=== PATIENT | female | born 1980 ===

== ENCOUNTER 2021-04-08 09:45 | Inpatient (IN) | payer OTHER ==
[~2021-04-08] VITALS: Ht 160 cm; Wt 10.0 kg
[2021-04-08] MEDS ORDERED: ALBUTEROL IH (15:18)
[2021-04-11] MEDS ORDERED: COLACE100 MG PO (07:37)
[2021-04-11] MEDS ORDERED: DIAZEPAM5 MG PO (07:37)
[2021-04-11] MEDS ORDERED: MEDROLPACK PO (07:37)
[2021-04-11] MEDS ORDERED: ACETAMINOPHEN-1 EAC2 PO (07:37)
== END 2021-04-12 13:23 | disposition home or self-care (01) | DRG 473 ==
LOC: SURG 04-11 05:45 → O/R 04-11 05:45 → SURH 04-11 07:00 → SURG 04-11 10:55 → PED 04-11 14:33
PROVIDERS: ADMIT Orthopaedic Surgery Orthopaedic Surgery of the Spine; ATTEND Orthopaedic Surgery Orthopaedic Surgery of the Spine
PROC: 07DS3ZZ Extraction of Vertebral Bone Marrow, Percutaneous Approach (ICD-10-PCS; 2021-04-11)
PROC: 0RG20J0 Fusion of 2 or more Cervical Vertebral Joints with Synthetic Substitute, Anterior Approach, Anterior Column, Open Approach (ICD-10-PCS; principal; 2021-04-11 07:00)
DX: M50.023 Cervical disc disorder at C6-C7 level with myelopathy (principal)